=== PATIENT | female | born 1970 | race Caucasian/White ===

== ENCOUNTER 2017-10-03 06:01 | Observation (INO) ==
--- NOTE | 2017-10-03 06:28 | Emergency Department Note ---
Disposition Clinical Impression: Bradycardia Syncope Qualifiers: Syncope type: unspecified Qualified Code(s): R55 - Syncope and collapse Hypotension Qualifiers: Hypotension type: hypotension due to hypovolemia Qualified Code(s): I95.89 - Other hypotension Disposition: Admitted As Inpatient Condition: Fair Syncope HPI - General Chief Complaint: ED Syncope Stated Complaint: "Syncopal Episode/Dizzy" Time Seen by Provider: 10/03/17 06:17 Source: patient, family Limitations: no limitations Nursing Notes Reviewed: Yes Vital Signs Reviewed: Yes - History of Present Illness HPI Narrative: 39-year-old female presents emergency department with concern for having a syncopal episode. Patient has had these in the past. She has had had an overnight stay at [facility]. Patient states she has an appointment with Dr. Peoples on the of this month. Patient states that her heart rate was in the 30s when she was admitted also. Patient denies any shortness of breath, chest pain, pressure, tightness. Patient states she was in her shower getting out, when she started feeling very lightheaded. She stated that she passed out , lost consciousness, denies hitting her head. Not having different per her . - Related Data Home Medications Medication Instructions Recorded Confirmed Gabapentin [Neurontin] 600 mg PO TID 10/03/17 10/03/17 Tizanidine HCl 4 mg PO QID PRN 10/03/17 10/03/17 Allergies Allergy/AdvReac Type Severity Reaction Status Date / Time No Known Allergies Allergy Verified 10/03/17 06:02 All systems ED: reviewed and negative except as stated. Review of Systems: As Per HPI Constitutional: Denies: fever Cardiovascular: Reports: syncope. Denies: chest pain Respiratory: Denies: cough, dyspnea Gastrointestinal: Denies: abdominal pain, nausea, vomiting Genitourinary: Denies: urgency, dysuria, frequency Musculoskeletal: Denies: back pain Integumentary: Denies: rash Neurological: Denies: headache, weakness, numbness, paresthesias Psychiatric: Denies: anxiety Endocrine: Denies: fatigue Past Medical History - Past Medical History Medical history: Reports: syncope Psychiatric history: Reports: bipolar - Social History Smoking Status: Never smoker Alcohol use: Reports: none Drug use: Reports: none Physical Exam - General Limitations: no limitations General appearance: alert - Head Head exam: normocephalic - Eye Eye exam: Present: EOMI - ENT ENT exam: normal oropharynx, mucous membranes moist - Neck Neck exam: Present: trachea midline - Chest Chest inspection: Present: symmetric chest wall rise - Respiratory Respiratory exam: Present: normal lung sounds bilaterally. Absent: respiratory distress, accessory muscle use - Cardiovascular Cardiovascular exam: Present: regular rate, normal rhythm, normal heart sounds - Abdominal Exam Abdominal exam: Present: soft, Non-Tender. Absent: distention, guarding, rebound, rigidity - Extremities Exam Extremities exam: Present: normal capillary refill - Back Exam Back exam: Present: full ROM - Neurological Exam Neurological exam: Present: alert, oriented X3 - Psychiatric Psychiatric exam: Present: normal affect, normal mood - Skin Skin exam: Present: warm, dry, intact, normal color Course Vital Signs Temperature 97.5 F L 10/03/17 06:02 Pulse Rate 68 10/03/17 06:02 Respiratory Rate 17 10/03/17 06:02 Blood Pressure 72/48 10/03/17 06:02 O2 Sat by Pulse Oximetry 98 10/03/17 06:02 Temperature 98.9 F 10/03/17 19:21 Pulse Rate 67 10/03/17 19:21 Respiratory Rate 17 10/03/17 19:21 Blood Pressure 127/75 10/03/17 19:21 O2 Sat by Pulse Oximetry 97 10/03/17 19:21 Oxygen Delivery Oxygen Delivery Room Air Syncope - MDM Narrative Medical decision making narrative: 47-year-old female presents emergency department with concern for having a syncopal episode today. EKG revealed sinus bradycardia with no acute ST changes. No evidence of Brugada's syndrome, Dudley-Parkinson White syndrome, hypertrophic cardiomyopathy, QT prolongation. Patient will be pursued basic labs. She will also be receiving a chest x-ray. Patient currently hemodynamically stable and not in any acute distress at this time. Patient's workup was not complete as patient has outstanding labs and imaging at time of transfer of care to the day team. I did speak to her inspecting supervisor, Dr. Peoples, who has an appointment with her on October 17. I explained to him the possibility of a scenario with this patient will be sent home and wanted to know if she could have closer follow-up with him instead of on the . Per our conversation, it seemed as if this might not be possible. Transfer of care provided to the day team with disposition pending. - Lab Data Result diagrams: 10/03/17 06:28 10/03/17 06:28 Lab Results 10/03/17 10/03/17 10/03/17 Range/Units 06:25 06:28 06:28 WBC 13.9 H (4.3-11.1) K/mcL RBC 5.83 H (3.82-4.97) M/mcL Hgb 17.0 H (11.5-15.4) g/dL Hct 48.5 H (35.3-44.9) % MCV 83.2 (83.0-100.0) fL MCH 29.2 (28.0-33.3) pg MCHC 35.1 (31.6-35.5) g/dL RDW 12.1 (11.5-14.5) % Plt Count 348 (140-400) K/mcL MPV 10.0 (9.4-12.4) fL Sodium 140 (136-145) mEq/L Potassium 3.9 (3.5-5.1) mEq/L Chloride 103 (98-107) mEq/L Carbon Dioxide 25 (23-29) mEq/L BUN 10 (6-20) mg/dL Creatinine 0.77 (0.60-1.20) mg/dL Est GFR ( Amer) > 60 (> 60) Est GFR (Non-Af Amer) > 60 (> 60) BUN/Creatinine Ratio 13 (6-26) Glucose 109 H (70-105) mg/dL POC Glucose 135 H (70-99) mg/dL Calculated Osmolality 290 (280-300) Calcium 10.4 H (8.6-10.3) mg/dL Troponin I < 0.03 (< 0.04) ng/mL TSH 1.752 (0.340-5.600) mcIU/mL Attestation Statement - Attestation Attestation: Dr Jiang note: Pt seen in conjunction w/ resident Dr King; please see his charting for complete documentation; I spent face to face time w/ pt and agree w/ pt's treatment and disposition; labs and results pending at time of our departure from shift; dispo will be per the dayshift attending physician; pt stable at our time of depature from shift;
[2017-10-03] MEDS ORDERED: 0.9 % Sodium Chloride 1,000 ML IV SCH (06:30)
[2017-10-03 06:40] LABS: Hematocrit 48.5 % (35.3-44.9); Mean Corpuscular HGB Conc 35.1 g/dL (31.6-35.5); Mean Corpuscular Hemoglobin 29.2 pg (28.0-33.3); Mean Corpuscular Volume 83.2 fL (83.0-100.0); Platelet Count 348 K/mcL (140-400); Red Blood Count 5.83 M/mcL (3.82-4.97); Red Cell Distribution Width 12.1 % (11.5-14.5)
[2017-10-03] MEDS ORDERED: Ondansetron 4 MG/2 ML VIAL IVP ONE (06:54)
[2017-10-03 07:02] LABS: BUN/Creatinine Ratio 13 (6-26); Blood Urea Nitrogen 10 mg/dL (6-20); Calcium 10.4 mg/dL (8.6-10.3); Carbon Dioxide 25 mEq/L (23-29); Chloride 103 mEq/L (98-107); Glucose 109 mg/dL (70-105); Osmolality,Calculated 290 (280-300); Potassium 3.9 mEq/L (3.5-5.1); Sodium 140 mEq/L (136-145); eGFR For Non-African Americans > 60 (> 60)
[2017-10-03 07:03] LABS: Troponin I < 0.03 ng/mL (< 0.04)
[2017-10-03 07:37] LABS: Thyroid Stimulating Hormone 1.752 mcIU/mL (0.340-5.600)
--- NOTE | 2017-10-03 07:53 | Emergency Department Note ---
Disposition Clinical Impression: Syncope Qualifiers: Syncope type: unspecified Qualified Code(s): R55 - Syncope and collapse Disposition: Admitted As Inpatient Referrals: Taylor Jacob CNP [Primary Care Provider] - Forms: ED Satisfaction Letter Time of Disposition: 07:53 General Adult HPI - General Chief complaint: ED Syncope Stated complaint: "Syncopal Episode/Dizzy" Time Seen by Provider: 10/03/17 06:17 Source: patient, family Limitations: no limitations - History of Present Illness Pain Scale: 0 - Related Data Allergies Allergy/AdvReac Type Severity Reaction Status Date / Time No Known Allergies Allergy Verified 10/03/17 06:02 Constitutional: Denies: fever Cardiovascular: Reports: syncope. Denies: chest pain Respiratory: Denies: cough, dyspnea Gastrointestinal: Denies: abdominal pain, nausea, vomiting Genitourinary: Denies: urgency, dysuria, frequency Musculoskeletal: Denies: back pain Integumentary: Denies: rash Neurological: Denies: headache, weakness, numbness, paresthesias Psychiatric: Denies: anxiety Endocrine: Denies: fatigue Past Medical History - Past Medical History Medical history: Reports: syncope Psychiatric history: Reports: bipolar - Social History Smoking Status: Never smoker Alcohol use: Reports: none Drug use: Reports: none Physical Exam - General Limitations: no limitations General appearance: alert Course Vital Signs Temperature 97.5 F L 10/03/17 06:02 Pulse Rate 68 10/03/17 06:02 Respiratory Rate 17 10/03/17 06:02 Blood Pressure 72/48 10/03/17 06:02 O2 Sat by Pulse Oximetry 98 10/03/17 06:02 Temperature 97.5 F L 10/03/17 06:02 Pulse Rate 45 10/03/17 06:52 Respiratory Rate 16 10/03/17 06:52 Blood Pressure 95/59 10/03/17 06:52 O2 Sat by Pulse Oximetry 98 10/03/17 06:52 Oxygen Delivery Oxygen Delivery Room Air Medical Decision Making - Lab Data Result diagrams: 10/03/17 06:28 10/03/17 06:28 Lab Results 10/03/17 10/03/17 Range/Units 06:28 06:28 WBC 13.9 H (4.3-11.1) K/mcL RBC 5.83 H (3.82-4.97) M/mcL Hgb 17.0 H (11.5-15.4) g/dL Hct 48.5 H (35.3-44.9) % MCV 83.2 (83.0-100.0) fL MCH 29.2 (28.0-33.3) pg MCHC 35.1 (31.6-35.5) g/dL RDW 12.1 (11.5-14.5) % Plt Count 348 (140-400) K/mcL MPV 10.0 (9.4-12.4) fL Sodium 140 (136-145) mEq/L Potassium 3.9 (3.5-5.1) mEq/L Chloride 103 (98-107) mEq/L Carbon Dioxide 25 (23-29) mEq/L BUN 10 (6-20) mg/dL Creatinine 0.77 (0.60-1.20) mg/dL Est GFR ( Amer) > 60 (> 60) Est GFR (Non-Af Amer) > 60 (> 60) BUN/Creatinine Ratio 13 (6-26) Glucose 109 H (70-105) mg/dL Calculated Osmolality 290 (280-300) Calcium 10.4 H (8.6-10.3) mg/dL Troponin I < 0.03 (< 0.04) ng/mL TSH 1.752 (0.340-5.600) mcIU/mL Attestation Statement - Attestation Attestation: I examined this patient and my medical decision-making was reviewed with the Resident Physician. I agree with the documented findings, disposition and treatment plan as described except to the extent set forth below. 47 year old female prsentse to the ED ith complaints of syncope and was most recently evaluted and treated at [facility] for symptomatic bradycardia. She states that she is starting to feel the same way again. She states that last time i DEcemeber when this happened she was gien fluids and it improved. Patient at rest is 48 bpm. WE will admit for symptomatic bradycardia.
--- NOTE | 2017-10-03 08:07 | Emergency Department Note ---
Disposition Clinical Impression: Bradycardia Syncope Qualifiers: Syncope type: unspecified Qualified Code(s): R55 - Syncope and collapse Hypotension Qualifiers: Hypotension type: unspecified hypotension type Qualified Code(s): I95.9 - Hypotension, unspecified Disposition: Admitted As Inpatient Condition: Fair Time of Disposition: 08:28 Syncope HPI - General Chief Complaint: ED Syncope Stated Complaint: "Syncopal Episode/Dizzy" Time Seen by Provider: 10/03/17 06:17 Source: patient, family Limitations: no limitations Nursing Notes Reviewed: Yes Vital Signs Reviewed: Yes - History of Present Illness HPI Narrative: Patient was signed out to me by the nighttime physician is Dr. Ortiz and Dr. Jiang pending reevaluation and final disposition. Please see their note for further details. Pt Subjective Complaint: loss of consciousness, collapsed - Related Data Home Medications Medication Instructions Recorded Confirmed Gabapentin [Neurontin] 600 mg PO TID 10/03/17 10/03/17 Tizanidine HCl 4 mg PO QID PRN 10/03/17 10/03/17 Allergies Allergy/AdvReac Type Severity Reaction Status Date / Time No Known Allergies Allergy Verified 10/03/17 06:02 All systems ED: reviewed and negative except as stated. Constitutional: Denies: fever Cardiovascular: Reports: syncope. Denies: chest pain Respiratory: Denies: cough, dyspnea Gastrointestinal: Denies: abdominal pain, nausea, vomiting Genitourinary: Denies: urgency, dysuria, frequency Musculoskeletal: Denies: back pain Integumentary: Denies: rash Neurological: Denies: headache, weakness, numbness, paresthesias Psychiatric: Denies: anxiety Endocrine: Denies: fatigue Past Medical History - Past Medical History Attestation: Yes The following information was validated with the patient. Source: patient Medical history: Reports: syncope Psychiatric history: Reports: bipolar - Social History Smoking Status: Never smoker Alcohol use: Reports: none Drug use: Reports: none Physical Exam - General Limitations: no limitations General appearance: alert Course Course Narrative: Patient was signed out to me by the nighttime physician is Dr. Ortiz and Dr. Jiang pending reevaluation and final disposition. Please see their note for further details. Fatuma is a 47-year-old female otherwise healthy presenting with a syncopal episode. Reports waken up at 4 o'clock getting ready for work when she did feel little lightheaded nauseated and in the shower she passed out. She admits to take in a warm shower but not a hot shower. She did collapse and when she regained consciousness she was pounding on the wall to have Primo help her out. She does not recall hitting her head. No history of seizures. She denies any weakness or numbness at this time. Denies any prodromal symptoms such as chest pain or shortness of breath. No headache or neck pain at this time. She reports a similar history month ago where she did have similar symptoms for 5 days and the fellow multiple times. She denies common for any evaluation. She also reports recent admission back in January were they gave her fluids and discharge her home after observation. She denies any additional testing. She reportedly has an appointment with Dr. Peoples the material checker October 17. She denies any shortness of breath or chest pain. No history of cancer, blood clots or leg swelling. Does not take any hormone replacements. Wells score is low, PERC positive. EKG performed shows sinus bradycardia 53 beats per minute WI interval 175, no ST elevation or depression, no Brugada pattern, no delta waves or LVH. No acute ischemic changes. Her initial vital signs she was hypotensive Sunday to systolic. After IV fluid hydration her systolic blood pressure has increased to 100. On examination she appears in no acute distress. No nystagmus seen on examination. No cervical midline tenderness. Neurologic exam is normal without any focal deficits. Heart is bradycardic but regular. No murmurs are auscultated at rest or with Valsalva. Review for lab shows elevated WBC possibly stress response related. Her hemoglobin level is significantly elevated 17. She denies any G.I. bleed symptoms. Troponin less than 0.03. Given the frequency of her symptoms she would benefit admission and observation for further evaluation. - Reevaluation(s) Reevaluation #1: Chest x-ray does not reveal any acute abnormalities. Findings concerning for possible atelectasis but no pneumonia. Orthostatic performed that she is hypotensive again. She will receive a 2nd liter normal saline. Patient will be admitted for syncopal episode, bradycardia and hypotension Time: 08:18 - Consultations Consultation #1: Unable to reach the admitting hospitalist, was able to speak with Dr. Bliss for admission of syncope, bradycardia, and orthostatic hypotension responsive to fluid. Will touch base with cardiology to have him on board. No further request or orders. Patient remains hemodynamically stable. Time: 10:04 Consultation #2: Spoke with on-call material checker Dr. Belle and agree with admission and will evaluate the patient. No further orders at this time. Time: 10:20 Vital Signs Temperature 97.5 F L 10/03/17 06:02 Pulse Rate 68 10/03/17 06:02 Respiratory Rate 17 10/03/17 06:02 Blood Pressure 72/48 10/03/17 06:02 O2 Sat by Pulse Oximetry 98 10/03/17 06:02 Temperature 97.5 F L 10/03/17 06:02 Pulse Rate 49 10/03/17 10:11 Respiratory Rate 24 10/03/17 10:11 Blood Pressure 113/61 10/03/17 10:11 O2 Sat by Pulse Oximetry 93 10/03/17 10:11 Oxygen Delivery Oxygen Delivery Room Air Syncope - MDM Narrative Medical decision making narrative: Patient was discussed with my attending physician who agrees with ED management and final disposition. They independently evaluated the patient. Please refer to their attestation to this encounter for additional information. This note was generated by [employer] voice recognition software and as a result grammatical or spelling errors may occur using this program. - Medical Records Medical records reviewed: Yes I reviewed the patient's medical records. - Lab Data Lab results reviewed: Yes I reviewed the patient's lab results. Result diagrams: 10/03/17 06:28 10/03/17 06:28 Lab Results 10/03/17 10/03/17 Range/Units 06:28 06:28 WBC 13.9 H (4.3-11.1) K/mcL RBC 5.83 H (3.82-4.97) M/mcL Hgb 17.0 H (11.5-15.4) g/dL Hct 48.5 H (35.3-44.9) % MCV 83.2 (83.0-100.0) fL MCH 29.2 (28.0-33.3) pg MCHC 35.1 (31.6-35.5) g/dL RDW 12.1 (11.5-14.5) % Plt Count 348 (140-400) K/mcL MPV 10.0 (9.4-12.4) fL Sodium 140 (136-145) mEq/L Potassium 3.9 (3.5-5.1) mEq/L Chloride 103 (98-107) mEq/L Carbon Dioxide 25 (23-29) mEq/L BUN 10 (6-20) mg/dL Creatinine 0.77 (0.60-1.20) mg/dL Est GFR ( Amer) > 60 (> 60) Est GFR (Non-Af Amer) > 60 (> 60) BUN/Creatinine Ratio 13 (6-26) Glucose 109 H (70-105) mg/dL Calculated Osmolality 290 (280-300) Calcium 10.4 H (8.6-10.3) mg/dL Troponin I < 0.03 (< 0.04) ng/mL TSH 1.752 (0.340-5.600) mcIU/mL - Radiology Data Radiology results reviewed: Yes I reviewed the patient's radiology results. Chest X-Ray 10/03/17 07:16 IMPRESSION: Low lung volumes and mild bibasilar opacities which are favored to represent atelectasis. D/ / Mike Wise MD / Mike Wise MD Interpreting Provider: Mike Wise MD - EKG Data EKG attestation: Yes I reviewed and interpreted this EKG. EKG results narrative: EKG performed at 0616 sinus bradycardia 53 bpm, normal axis, WI interval 175, no ST elevation, no Brugada pattern, delta wave, or LVH. QT QTc 431/414. No acute ischemic changes.
[2017-10-03] MEDS ORDERED: 0.9 % Sodium Chloride 1,000 ML IVC ONE (08:18)
[2017-10-03] MEDS ORDERED: *HR* HYDROcodone/Acet 5/325 mg TABLET PO PRN (12:06)
[2017-10-03] MEDS ORDERED: Acetaminophen 325 MG TABLET PO PRN (12:06)
[2017-10-03] MEDS ORDERED: Naloxone 0.4 MG/ML INJ IVP PRN (12:06)
[2017-10-03] MEDS ORDERED: Ondansetron 4 MG/2 ML VIAL IVP PRN (12:06)
[2017-10-03] MEDS ORDERED: *HR* Promethazine 25 MG/ML VIAL IVP PRN (12:06)
[2017-10-03] MEDS ORDERED: tiZANidine 4 MG TABLET PO PRN (12:08)
[2017-10-03] MEDS ORDERED: 0.9 % Sodium Chloride 1,000 ML IVC SCH (12:15)
--- NOTE | 2017-10-03 14:02 | Cardiology Consult Note ---
<Emily Negrete - Last Filed: 10/03/17 14:45> Date of Encounter: 10/03/17 Time of Encounter: 13:46 Assessment and Plan (1) Syncope Current Visit: Yes Status: Acute Patient presenting with syncope, bradycardic and hypotensive on arrival - Most likely etiology due to multi-factorial mechanism, orthostatic hypotension given history and mechanism, along with medication side effects - EKG negative for acute ischemic changes do not suspect cardiac etiology at this time, will order echocardiogram for reassurance - bmp, TSH, Mg, troponin within normal limits - CXR shows linear opacitis, suggestive of atelectasis - positive orthostatics - vitals have remained stable since admission, HR in the 70s on examination Plan: - Holter monitor ordered with follow up outpatient established with Dr. Carlos Carias 10/16/17 - recommend stopping tizanidine and gabapentin with side effect profile, will defer to hospitalist for medication management - recommended to patient to add salt to diet, compression stockings, maintain hydration, avoidance of exacerbating factors, getting up slowly from a sitting position - Echocardiogram pending Qualifiers: Syncope type: unspecified Qualified Code(s): R55 - Syncope and collapse Discussion w patient/family: The assessment and plan as outlined above was discussed with the patient and/or family members who expressed understanding and agreement. All questions were answered. Thank you for involving us in the care of your patient. Please call with any questions. History of Present Illness Consult date: 10/03/17 Requesting physician: Emeli Espino Consult reason: syncope/ bradycardia Chief complaint: syncope History of present illness: Ms. De Leon is a 47 year old female presenting for cardiology consult for syncope /bradycardia admitted for syncope/bradycardia. Patient has past medical history of bipolar disorder, not currently taking medication. Patient state that yesterdays she had symptoms of generalized dizziness, where she felt as though the room was spinning and she was spinning, denies position change to dizziness. States that this was going on intermittently throughout the day which eventually subsided by the evening. She states this morning she woke up at baseline and went into the hot shower, where she began to have abrupt onset, lightheaded and dizziness with syncope. She denies hitting her head, she is unaware how long she was down. She denies biting her tongue, loss of bowel or bladder. Over the past six months she has had similar lightheaded and dizzy episodes going from sitting to standing position with one syncopal episode about 3 months ago, was not evaluated at that time. She was seen in the ER and admitted for observation 6 months ago for syncopal episode, states she was given fluids and discharged without determination of etiology. She states 3 months prior to this, she was started on a new bipolar medication, rexulti, and this was thought to be a cause and was stopped. She states that her symptoms improved slightly after this medication change. She denies any recent medication changes, chest pain, sob, palpitations, weakness, numbness or tinging. She denies history of arrhythmia or abnormal heart rhythm, she has not had cardiac testing in the past or history of [place]. She states that she has had a seizure in the past, around 2004, was told this was due to low potassium, has not had recurrence of seizures and has never been seen by neurology. Patient does take Tizanidine 4 mg four times per day and gabapentin 600 three times per day. While in the ER, patient had EKG which showed sinus bradycardia, no signs of acute ischemic changes. Patient was given 2L NS and heart rate was noted WNL. Currently, patient is resting comfortably in her bed on examination, denies current complaints or symptoms. Denies chest pain, sob, palpitations, lightheaded or dizziness. Past Med Surg Social Fam HX - Past Medical History Medical history: syncope Psychiatric history: bipolar - Past Surgical History Additional surgical history: Ortho ankel, wrist and finger sx - Social History Smoking Status: Never smoker Alcohol use: none Drug use: none - Family History Mother History Unknown: Yes Father Living Status: Still Living Hx Family Respiratory Disorders: Yes Hx Family Cancer: Yes Medications and Allergies Gabapentin [Neurontin] 600 mg PO TID 10/03/17 [History] Tizanidine HCl 4 mg PO QID PRN 10/03/17 [History] 3 Allergy/AdvReac Type Severity Reaction Status Date / Time No Known Allergies Allergy Verified 10/03/17 06:02 All Systems Review: The remainder of the systems were reviewed and are negative - Constitutional Constitutional: no chills, no fatigue, no fever(s), no headache(s), no weakness - Cardiovascular Cardiovascular: lightheadedness, slow heart rate, syncope, no chest pain at rest , no chest pain with exertion, no diaphoresis, no dyspnea at rest, no dyspnea on exertion, no irregular heart rhythm, no leg edema, no orthopnea, no palpitations - Respiratory Respiratory: no cough, no dyspnea - Gastrointestinal Gastrointestinal: no abdominal pain, no diarrhea, no nausea - Integumentary Integumentary: no erythema, no rash - Neurological Neurological: dizziness, syncope, no focal weakness, no numbness, no tingling Physical Examination Vital Signs, Last 4 Hours Temp Pulse Resp BP Pulse Ox 10/03/17 10:51 98.7 F 89 15 99/52 97 General: Conversant, No Apparent Distress HEENT: Atraumatic, Normocephaly, Mucus Membranes Moist Neck: No JVD, Normal carotid pulses Cardiac: Reg Rate and Rhythm, Normal S1 and S2, No Murmur Lungs: Normal Breath Sounds, No Wheeze, Rales, Rhonchi Neuro: Alert and responsive, No focal deficits noted Abdomen: Soft, Non-Tender Skin: No rashes noted on visualized skin Musculoskeletal: No Chest Wall Tenderness Extremities: No Clubbing, No Cyanosis, No Edema, Normal Pulses Results 10/03/17 06:28 10/03/17 06:28 - Imaging and Cardiology Chest Xray: report reviewed Echo: pending - EKG Interpretation EKG results cardiology: personally reviewed (EKG performed 10/03/17 showed sinus bradycardia with rate of 53 bpm, nonspecific ST changes, no acute ischemic changes, NE, QT, QTC, intervals normal) Consult Discharge Plan - Plan Referrals: Taylor Jacob CNP [Primary Care Provider] - <Senia Belle - Last Filed: 10/03/17 15:49> Date of Encounter: 10/03/17 - Attending Attestation I examined this patient and my medical decision-making was reviewed with the Resident Physician. I agree with the documented findings, disposition and treatment plan as described except to the extent set forth below. Ms. De Leon presents with reported syncope. Reports having other episodes of syncope in the past along with complaints of dizziness, lightheadedness. Denies chest pain, palpitations. History of bipolar disorder on gabapentin and tizanidine. At the bedside, the patient is alert and oriented x3, flat affect, NAD VS reviewed - afebrile on RA, SBP initially 72 mmHg, HR 40-80 Exam demonstrates unremarkable findings. Labs reviewed - initial troponin is negative CXR - unremarkable ECG on admit demonstrates SB, normal intervals, nonspecific ST findings diffusely Telemetry demonstrates average HR 50's, no significant pauses or dysrhythmia Impression/Plan: 1. Syncope - patient hypotensive on arrival with positive orthostatic VS. Patient is a poor historian. Suspect poor hydration (patient did not answer when I asked about hydration or oral intake). BP improved with IVF. By history taking, other episodes appear to be related to orthostasis. In part, symptoms may be medication mediated (gabapentin, tizanidine). Do not suspect cardiogenic mediated syncope. Sinus bradycardia on ECG with normal intervals and no other concerning findings. Awaiting Echo for further recommendations. Trend troponin. Patient has EP consultation as outpatient on 10/16. Assessment and Plan Discussion w patient/family: The assessment and plan as outlined above was discussed with the patient and/or family members who expressed understanding and agreement. All questions were answered. Thank you for involving us in the care of your patient. Please call with any questions. History of Present Illness History of present illness: Ms. De Leon is a 47 year old female All Systems Review: The remainder of the systems were reviewed and are negative Results 10/03/17 06:28 10/03/17 06:28
[2017-10-03] MEDS: Gabapentin 300 MG CAPSULE PO SCH ×2 (14:08→20:15)
[2017-10-03 14:16] LABS: Bilirubin,Urine Negative (Negative); Blood,Urine Negative (Negative); Clarity,Urine Clear (Clear); Color,Urine Yellow (Yellow); Glucose,Urine (UA) Normal (Normal); Ketones,Urine Negative (Negative); Leukocyte Esterase,Urine Negative (Negative); Nitrite,Urine Negative (Negative); Protein,Urine Negative (Neg-Trace); Specific Gravity,Urine 1.008 (1.010-1.025); Urobilinogen,Urine Normal (Normal)
--- NOTE | 2017-10-03 17:16 | Electrocardiograph Report ---
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
--- NOTE | 2017-10-03 17:55 | Internal Med History&Physical ---
Date of Encounter: 10/03/17 Time of Encounter: 14:00 Internal Medicine - H&P: HPI Chief complaint: Syncope Admitted From: Emergency Dept Plans for Post Hospital Care: Home History of present illness: Ms. De Leon is a 47 year old female with a known past medical history of bipolar - not on any medication currently presented to ER syncopal episode. Pt has been feeling dizzy since y/d. This morning when she went into the hot shower, where she began to have lightheaded and dizziness with syncope. Pt did mention she was hospitalized in January 2017 for syncope, since then so far she had 2 episodes of similar syncope. In the ER she was found to have sinus bradycardia with HR in high 40's. She denied any CP/ SOB. Denied any recent travel history. She denied GI . symptoms. In the ER her BP was in low 90's and ortho stats positive. Past Med Surg Social Fam HX - Past Medical History Medical history: syncope Psychiatric history: bipolar - Past Surgical History Additional surgical history: Ortho ankel, wrist and finger sx - Social History Smoking Status: Never smoker Alcohol use: none Drug use: none - Family History Mother History Unknown: Yes Father Living Status: Still Living Hx Family Respiratory Disorders: Yes Hx Family Cancer: Yes Internal Medicine - H&P: Meds Gabapentin [Neurontin] 600 mg PO TID 10/03/17 [History] Tizanidine HCl 4 mg PO QID PRN 10/03/17 [History] 3 Allergy/AdvReac Type Severity Reaction Status Date / Time No Known Allergies Allergy Verified 10/03/17 06:02 All Systems PM: A 10-system review of systems was performed and is negative for pertinent findings except as documented above in the HPI. Review of systems: All the systems are reviewed everything is benign except the systems and symptoms I mentioned in the history of present illness - Constitutional Vitals: Temp Pulse Resp BP Pulse Ox 98.5 F 49 14 115/69 97 10/03/17 15:29 10/03/17 15:29 10/03/17 15:29 10/03/17 15:29 10/03/17 15:29 General appearance: Present: cooperative, A&O X 3, no acute distress, answers questions appropriately - Head Head exam: Present: atraumatic, normocephalic - Neck Neck exam general surgery: Present: supple - Respiratory Respiratory exam: Present: decreased breath sounds. Absent: rales, respiratory distress, rhonchi, wheezes - Cardiovascular Cardiovascular exam: Present: RRR, +S1, +S2. Absent: tachycardia - GI/Abdominal GI/Abdominal exam: Present: normal bowel sounds, soft. Absent: rebound, rigid, tenderness - Extremities Exam Extremities exam: Absent: calf tenderness, pedal edema, tenderness - Back Exam Back exam: Absent: CVA tenderness (L), CVA tenderness (R) - Neurological Exam Neurological exam: Present: alert, oriented X3 - Psychiatric Psychiatric exam: Present: normal affect, normal mood - Skin Skin exam: Absent: rash Internal Med - H&P Results - Labs CBC & Chem 7: 10/03/17 06:28 10/03/17 06:28 Labs: Cardiac Enzymes 10/03/17 Range/Units 16:31 Troponin I < 0.03 (< 0.04) ng/mL Urine 10/03/17 Range/Units 14:00 Urine Color Yellow (Yellow) Urine Clarity Clear (Clear) Urine pH 6.0 (5.0-8.0) pH Units Ur Specific [place] 1.008 L (1.010-1.025) Urine Protein Negative (Neg-Trace) mg/dL Urine Glucose (UA) Normal (Normal) mg/dL - Assessment and plan (1) Syncope Current Visit: Yes Status: Acute Assessment and plan: Will place the pt into Tele for observation Pt's Syncope seems to be more like vasovagal reaction / ortho static EKG showed sinus bradycardia will place the pt on hospital monitor check serial troponin so far negative trop will get 2 D echo and Carotid Doppler Will check FLP in AM Cont checking ortho stat vitals Cont IV fluids Will hold on her home med Tizanidine Qualifiers: Syncope type: unspecified Qualified Code(s): R55 - Syncope and collapse (2) Bradycardia Current Visit: Yes Status: Acute Assessment and plan: Sinus sunshine cardia Card consulted 2D co - P Possible holter monitor upon d/c home (3) Hypotension Current Visit: Yes Status: Acute Assessment and plan: Due to dehydration started on IV hydration improving Qualifiers: Hypotension type: hypotension due to hypovolemia Qualified Code(s): I95.89 - Other hypotension; E86.1 - Hypovolemia - Time Spent With Patient Total time spent is greater than 50% in coordination of care (as documented) at patient's floor/unit and/or counseling patient:
[2017-10-03 19:21] VITALS: BP 127/75
--- NOTE | 2017-10-04 10:18 | Event Note ---
Date of Encounter: 10/04/17 Time of Encounter: 23:00 I was notified by the nurse that patient was not compliant with treatment here in the hospital. She had taken off her security monitor, and was refusing lab draws. The nurse requested I speak with the patient about this. Upon entering the room patient did not acknowledge my presence, I turn on the light and asked her how she was feeling. She stated that she was upset he goes we are not giving her medication to help her sleep so she took off all of her monitors and was refusing lab draws because these things make her uncomfortable. I explained to her that we are treating her for low heart rate, syncope and were concerned that sedating medicine could worsen her symptoms. Patient stated that she understood however she did not agree with our treatment. I explained that it would be dangerous to give her medicine that would sedate her in her current condition. I was later notified a few hours later that the patient left AMA without the nurse knowing and she left the hospital.
== END 2017-10-04 01:17 | disposition left against medical advice (07) ==
LOC: 3BNU 06:01 → EMEROO 06:01 → 3BNU 10:44
PROVIDERS: ADMIT Family Medicine; ATTEND Family Medicine

== ENCOUNTER 2018-07-26 10:57 | Inpatient (IN) ==
[2018-07-26 13:01] LABS: ABG Base Excess 0 mEq/L (-2 to 3); ABG HCO3 23 mEq/L (21-27); ABG Oxygen Saturation 99 % (95-98); ABG PCO2 33 mmHg (35-45); ABG PH 7.45 pH Units (7.32-7.45); ABG PO2 113 mmHg (85-104); ABG TCO2 24 mEq/L (20-26); Blood Gas Modality ASSIST CONTROL; Blood Gas PEEP 5 cm H2O; Blood Gas Respiration Rate 12; Blood Gas VT 450 cc
[2018-07-26] MEDS ORDERED: Artificial Tears SOLN 15 ML BOTTLE BOTH EYES PRN (13:27)
[2018-07-26] MEDS ORDERED: *HR* Heparin 5,000 UNIT/ML VIAL ONE (14:07)
[2018-07-26] MEDS: 0.9 % Sodium Chloride 1,000 ML IVC SCH (14:09)
[2018-07-26] MEDS: FentaNYL (PF) 1,000 MCG in 0.9 % Sodium Chloride 80 ML IVC SCH (14:09)
[2018-07-26] MEDS: Chlorhexidine Rinse 15 ML MOUTHWASH MM SCH ×2 (14:10→19:58)
[2018-07-26] MEDS: Pantoprazole 40 MG VIAL IVP SCH (14:10)
[2018-07-26 14:41] LABS: Basophils % 0.3 %; Eosinophils # 0.1 K/mcL (0.0-0.6); Eosinophils % 0.6 %; Hematocrit 46.6 % (35.3-44.9); Hemoglobin 15.5 g/dL (11.5-15.4); Immature Granulocytes % 0.4 % (0-4); Lymphocytes # 2.6 K/mcL (0.6-4.6); Lymphocytes % 20.9 %; Mean Corpuscular HGB Conc 33.3 g/dL (31.6-35.5); Mean Corpuscular Hemoglobin 29.8 pg (28.0-33.3); Mean Corpuscular Volume 89.4 fL (83.0-100.0); Mean Platelet Volume 10.9 fL (9.4-12.4); Monocytes % 8.3 %; Platelet Count 172 K/mcL (140-400); Red Blood Count 5.21 M/mcL (3.82-4.97); Red Cell Distribution Width 12.7 % (11.5-14.5); Segmented Neutrophils % 69.5 %
[2018-07-26] MEDS: *HR* Heparin 5,000 UNIT/ML VIAL SQ SCH ×2 (14:55→19:58)
[2018-07-26] MEDS: Artificial Tears SOLN 15 ML BOTTLE BOTH EYES SCH ×3 (14:56→23:08)
[2018-07-26 15:01] LABS: Monocytes # 1.1 K/mcL (0.0-1.3); Neutrophils # 8.8 K/mcL (1.6-8.9)
[2018-07-26 15:02] LABS: Platelet Estimate Normal (Normal)
--- NOTE | 2018-07-26 15:51 | Pulmonology History & Physical ---
Date of Encounter: 07/26/18 Time of Encounter: 13:40 Assessment and Plan (1) Acute respiratory failure Current visit: Yes Status: Acute Patient was transferred from outside hospital on the ventilator. Is not clear exactly her condition when she came to the emergency room at outside hospital and she was intubated for most likely mental status changes due to her intentional overdose. At this time patient is not hemodynamically stable for spontaneous breathing trial. I have reviewed her ABG from outside hospital which is appropriate and I discussed with respiratory therapist to repeat ABG and will adjust ventilator setting appropriately. I am hoping when she is more awake then she can be extubated. Qualifiers: Respiratory failure complication: unspecified whether with hypoxia or hypercapnia Qualified Code(s): J96.00 - Acute respiratory failure, unspecified whether with hypoxia or hypercapnia (2) Overdose Current visit: Yes Status: Acute It is not clear exactly how much and what medication she has taken and poison control has been contacted. It appears that she has prolongation of QT interval and she has already has received atropine for bradycardia. She will need close monitoring and supportive care at this time. When she is extubated and images was suicidal attempt then she will need psych evaluation. I have discussed this with the sister at the bedside and answered all her questions. Her to vascular complications could be serious complication from taking psychiatric medications. I spent 50 min of Critical Care time with this patient. It involved decision making of high complexity to assess, manipulate, and support vital organ system failure and/or to prevent further life threatening deterioration of the patient's condition. The time involved in the performance of separately reportable procedures was not counted toward critical care time. Qualifiers: Encounter type: initial encounter Injury intent: undetermined intent Qualified Code(s): T50.904A - Poisoning by unspecified drugs, medicaments and biological substances, undetermined, initial encounter History of Present Illness Chief complaint: Overdose HPI: Ms. De Leon is a 48 year old female with significant psychiatric disorders who was transferred to [facility] ICU per request from the family from the [facility]. Patient is not able to give any history and when she arrived to [facility] ICU her sister was available and history remain limited. It is unknown whether this was intentional or accidental overdose. 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 Unknown exactly which she overdosed, however when she presented to emergency room at the outside facility she was intubated and was given atropine and also for bradycardia. I am not able to obtain any more history at this time. Past Med Surg Social Fam HX - Past Medical History Medical history: GERD, kidney stones, seizures, syncope Psychiatric history: anxiety, bipolar, depression - Past Surgical History Surgical History: , cholecystectomy Additional surgical history: Ortho ankel, wrist and finger sx - Social History Smoking Status: Never smoker Smokeless Tobacco Status: No Alcohol use: none Drug use: none - Family History Father Living Status: Still Living Hx Family Respiratory Disorders: Yes Hx Family Cancer: Yes Medications and Allergies Gabapentin [Neurontin] 600 mg PO TID 10/03/17 [History] Tizanidine HCl 4 mg PO TID 10/03/17 [History] Zolpidem [Ambien] 10 mg PO HS PRN 02/16/18 [History] Allergy/AdvReac Type Severity Reaction Status Date / Time No Known Allergies Allergy Verified 02/16/18 13:58 ROS unobtainable: due to mental status All Systems: The remainder of the systems were reviewed and are negative Physical Examination Vital Signs: Vital Signs, Last 4 Hours Temp Pulse Resp BP Pulse Ox 07/26/18 15:00 97.9 F 50 15 117/73 99 07/26/18 14:00 97.9 F 48 15 126/73 99 07/26/18 13:49 14 100 07/26/18 12:40 14 99 General appearance: no acute distress Eyes: nonicteric ENT: oropharynx dry Neck: supple, no lymphadenopathy Effort: normal Auscultation: bilateral: diminished breath sounds Percussion: bilateral: not dull Cardiovascular: regular rate and rhythm Gastrointestinal: normoactive bowel sounds, non-distended Extremities: no cyanosis, no edema unable to assess due to mental status Results - Laboratory Findings CBC and BMP: 07/27/18 04:33 07/27/18 04:33 ABG ABG pH 7.45 pH Units (7.32-7.45) 07/26/18 12:58 ABG pCO2 33 mmHg (35-45) L 07/26/18 12:58 ABG pO2 113 mmHg (85-104) H 07/26/18 12:58 ABG O2 Saturation 99 % (95-98) H 07/26/18 12:58 Abnormal lab findings: Abnormal lab results WBC 12.6 K/mcL (4.3-11.1) H 07/26/18 14:12 RBC 5.21 M/mcL (3.82-4.97) H 07/26/18 14:12 Hgb 15.5 g/dL (11.5-15.4) H 07/26/18 14:12 Hct 46.6 % (35.3-44.9) H 07/26/18 14:12 ABG pCO2 33 mmHg (35-45) L 07/26/18 12:58 ABG pO2 113 mmHg (85-104) H 07/26/18 12:58 ABG O2 Saturation 99 % (95-98) H 07/26/18 12:58 Lactic Acid 2.3 mmol/L (0.5-2.2) H 07/26/18 14:12
[2018-07-26 22:08] LABS: Alanine Aminotransferase 26 Units/L (7-52); Albumin 3.1 g/dL (3.5-5.7); Albumin/Globulin Ratio 1.5 (1.1-2.2); Alkaline Phosphatase 49 Units/L (34-104); Aspartate Amino Transferase 23 Units/L (13-39); BUN/Creatinine Ratio 17 (6-26); Bilirubin,Total 0.4 mg/dL (0.3-1.0); Blood Urea Nitrogen 11 mg/dL (6-20); Calcium 7.9 mg/dL (8.6-10.3); Carbon Dioxide 24 mEq/L (23-29); Chloride 109 mEq/L (98-107); Creatine Kinase 524 Units/L (30-223); Globulin 2.1 g/dL (2.4-3.5); Glucose 129 mg/dL (70-105); Magnesium 1.7 mg/dL (1.6-2.6); Osmolality,Calculated 295 (280-300); Phosphorous 3.7 mg/dL (2.7-4.5); Potassium 3.3 mEq/L (3.5-5.1); Sodium 142 mEq/L (136-145); Total Protein 5.2 g/dL (6.4-8.9); eGFR For Non-African Americans > 60 (> 60)
[2018-07-27] MEDS: 0.9 % Sodium Chloride 1,000 ML IVC SCH ×2 (02:36→12:45)
[2018-07-27] MEDS: FentaNYL (PF) 1,000 MCG in 0.9 % Sodium Chloride 80 ML IVC SCH ×3 (03:30→18:44)
[2018-07-27] MEDS: Artificial Tears SOLN 15 ML BOTTLE BOTH EYES SCH ×6 (03:45→23:21)
[2018-07-27 04:38] LABS: ABG Base Excess -1 mEq/L (-2 to 3); ABG HCO3 22 mEq/L (21-27); ABG Oxygen Saturation 93 % (95-98); ABG PCO2 30 mmHg (35-45); ABG PH 7.47 pH Units (7.32-7.45); ABG PO2 62 mmHg (85-104); ABG TCO2 23 mEq/L (20-26); Blood Gas Modality ASSIST CONTROL; Blood Gas PEEP 5 cm H2O; Blood Gas Respiration Rate 12; Blood Gas VT 450 cc
[2018-07-27 04:44] LABS: Hematocrit 36.1 % (35.3-44.9); Mean Corpuscular HGB Conc 34.1 g/dL (31.6-35.5); Mean Corpuscular Hemoglobin 29.9 pg (28.0-33.3); Mean Corpuscular Volume 87.6 fL (83.0-100.0); Mean Platelet Volume 9.7 fL (9.4-12.4); Platelet Count 181 K/mcL (140-400); Red Blood Count 4.12 M/mcL (3.82-4.97); Red Cell Distribution Width 12.8 % (11.5-14.5)
[2018-07-27 04:46] LABS: Hemoglobin 12.3 g/dL (11.5-15.4)
[2018-07-27 05:03] LABS: BUN/Creatinine Ratio 19 (6-26); Blood Urea Nitrogen 13 mg/dL (6-20); Calcium 7.8 mg/dL (8.6-10.3); Carbon Dioxide 25 mEq/L (23-29); Chloride 108 mEq/L (98-107); Creatine Kinase 413 Units/L (30-223); Glucose 135 mg/dL (70-105); Osmolality,Calculated 290 (280-300); Potassium 3.1 mEq/L (3.5-5.1); Sodium 139 mEq/L (136-145); eGFR For Non-African Americans > 60 (> 60)
[2018-07-27] MEDS: *HR* Heparin 5,000 UNIT/ML VIAL SQ SCH ×3 (05:44→21:16)
[2018-07-27 06:45] LABS: Albumin 3.5 g/dL (3.5-5.7); Albumin/Globulin Ratio 1.6 (1.1-2.2); Bilirubin,Direct 0.1 mg/dL (0.0-0.2); Bilirubin,Indirect 0.4 mg/dL (0.0-1.2); Bilirubin,Total 0.5 mg/dL (0.3-1.0); Globulin 2.2 g/dL (2.4-3.5); Total Protein 5.7 g/dL (6.4-8.9)
[2018-07-27] MEDS: Pantoprazole 40 MG VIAL IVP SCH (06:55)
[2018-07-27] MEDS: Chlorhexidine Rinse 15 ML MOUTHWASH MM SCH ×2 (06:55→21:16)
[2018-07-27 07:49] LABS: Magnesium 1.6 mg/dL (1.6-2.6)
[2018-07-27] MEDS: Piperacillin/Tazobactam 3.375 GM in 0.9 % Sodium Chloride Mini Bag 100 ML IVPB SCH ×3 (08:14→23:21)
--- NOTE | 2018-07-27 09:34 | Pulmonology Progress Note ---
<Fern Baires - Last Filed: 07/27/18 11:50> Date of Encounter: 07/27/18 Time of Encounter: 11:50 Assessment and Plan (1) Acute respiratory failure Current Visit: Yes Status: Acute Transferred from outside facility due to acute respiratory failure likely secondary to intoxication overdose CT scan at outside facility was negative for any acute abnormalities UDS was positive for opioids, benzo, TCA Continue to remain intubated Continue Zosyn for suspected aspiration pneumonia Qualifiers: Respiratory failure complication: unspecified whether with hypoxia or hypercapnia Qualified Code(s): J96.00 - Acute respiratory failure, unspecified whether with hypoxia or hypercapnia (2) Bradycardia Current Visit: No Status: Chronic History of bradycardia. Her sister previously had cardiac workup with Holter monitor as an outpatient Since admission heart rate has remained within normal limits We will continue to closely monitor and titrate sedatives accordingly (3) Overdose Current Visit: Yes Status: Acute Was found unresponsive at home and [facility] had a CT of the head which showed no acute abnormalities She had respiratory failure and was subsequently intubated outside facility Her UDS was positive for TCA, benzo and opiates At presentation her EKG showed prolonged QT interval likely secondary to TCA Continues to have prolonged QT interval avoid and medications to further prolong it Qualifiers: Encounter type: initial encounter Injury intent: undetermined intent Qualified Code(s): T50.904A - Poisoning by unspecified drugs, medicaments and biological substances, undetermined, initial encounter (4) Hypokalemia Current Visit: Yes Status: Acute Potassium was noted to be 3.1 repleted with IV potassium (5) Elevated troponin Current Visit: Yes Status: Acute Noted to have bradycardia at outside facility with junctional rhythm Per sister has chronic history of bradycardia At outside facility troponin was within normal limits repeat troponin this morning and elevated at 0.31, we will repeat every 6 hours EKG shows normal sinus rhythm with prolonged QT interval (6) DVT prophylaxis Current Visit: Yes Status: Acute Heparin subcutaneous Subjective Interval history: Seen at bedside this morning was intubated and sedated. He did respond to verbal and auditory stimuli by opening eyes but not following commands. Her heart rate has remained within normal limits her she reports history of bradycardia in the past and has had cardiac work up with a Holter monitor as an outpatient. Her labs showed potassium of 3.1 with white count improving. Objective PUL Vital signs: Last Vital Signs Temp 101.7 F H 07/27/18 07:38 Pulse 68 07/27/18 09:00 Resp 15 07/27/18 09:00 BP 96/58 07/27/18 09:00 Pulse Ox 99 07/27/18 09:00 General appearance: no acute distress, other (intubated and sedated) Eyes: nonicteric ENT: oropharynx moist Neck: supple, no lymphadenopathy Auscultation: bilateral: diminished breath sounds (lower lung bases) Cardiovascular: regular rate and rhythm Gastrointestinal: hypoactive bowel sounds, soft, non-tender Integumentary: normal Extremities: no cyanosis, no edema Musculoskeletal: no deformities unable to assess due to mental status (sedated and intuabted) Ventilator Settings Ventilator Settings: Ventilator Settings, Last 8 Hours Ventilator Tidal Volume 400 Setting Ventilator Tidal Volume 450 Setting Ventilator Tidal Volume 450 Setting Ventilator Tidal Volume 450 Setting Ventilator Tidal Volume 450 Setting Ventilator Tidal Volume 450 Setting Ventilator Tidal Volume 450 Setting Ventilator Tidal Volume 450 Setting Ventilator Tidal Volume 450 Setting Ventilator Tidal Volume 450 Setting Ventilator Tidal Volume 450 Setting Ventilator Tidal Volume 450 Setting Ventilator Respiratory Rate 12 Setting Ventilator Respiratory Rate 12 Setting Ventilator Respiratory Rate 12 Setting Ventilator Respiratory Rate 12 Setting Ventilator Respiratory Rate 12 Setting Ventilator Respiratory Rate 12 Setting Ventilator Respiratory Rate 12 Setting Ventilator Respiratory Rate 12 Setting Ventilator Respiratory Rate 12 Setting Ventilator Respiratory Rate 12 Setting Ventilator Respiratory Rate 12 Setting Ventilator Respiratory Rate 12 Setting Actual Respiratory Rate 15 Actual Respiratory Rate 14 Actual Respiratory Rate 15 Actual Respiratory Rate 14 Actual Respiratory Rate 15 Actual Respiratory Rate 15 Actual Respiratory Rate 18 Actual Respiratory Rate 16 Actual Respiratory Rate 18 Actual Respiratory Rate 18 Actual Respiratory Rate 17 Positive End Expiratory 5 Pressure Positive End Expiratory 5 Pressure Positive End Expiratory 5 Pressure Positive End Expiratory 5 Pressure Positive End Expiratory 5 Pressure Positive End Expiratory 5 Pressure Positive End Expiratory 5 Pressure Positive End Expiratory 5 Pressure Positive End Expiratory 5 Pressure Positive End Expiratory 5 Pressure Positive End Expiratory 5 Pressure Positive End Expiratory 5 Pressure Peak Inspiratory Airway 19 Pressure Peak Inspiratory Airway 20 Pressure Peak Inspiratory Airway 21 Pressure Peak Inspiratory Airway 20 Pressure Peak Inspiratory Airway 22 Pressure Peak Inspiratory Airway 22 Pressure Peak Inspiratory Airway 27 Pressure Peak Inspiratory Airway 23 Pressure Peak Inspiratory Airway 23 Pressure Peak Inspiratory Airway 23 Pressure Peak Inspiratory Airway 22 Pressure Results - Laboratory Findings CBC and BMP: 07/27/18 04:33 07/27/18 04:33 ABG ABG pH 7.47 pH Units (7.32-7.45) H 07/27/18 04:36 ABG pCO2 30 mmHg (35-45) L 07/27/18 04:36 ABG pO2 62 mmHg (85-104) L 07/27/18 04:36 ABG O2 Saturation 93 % (95-98) L 07/27/18 04:36 Abnormal lab findings: Abnormal lab results WBC 11.8 K/mcL (4.3-11.1) H 07/27/18 04:33 RBC 5.21 M/mcL (3.82-4.97) H 07/26/18 14:12 Hgb 15.5 g/dL (11.5-15.4) H 07/26/18 14:12 Hct 46.6 % (35.3-44.9) H 07/26/18 14:12 ABG pH 7.47 pH Units (7.32-7.45) H 07/27/18 04:36 ABG pCO2 30 mmHg (35-45) L 07/27/18 04:36 ABG pO2 62 mmHg (85-104) L 07/27/18 04:36 ABG O2 Saturation 93 % (95-98) L 07/27/18 04:36 Potassium 3.1 mEq/L (3.5-5.1) L 07/27/18 04:33 Chloride 108 mEq/L (98-107) H 07/27/18 04:33 Glucose 135 mg/dL (70-105) H 07/27/18 04:33 POC Glucose 122 mg/dL (70-99) H 07/26/18 12:42 Lactic Acid 2.6 mmol/L (0.5-2.2) H 07/26/18 18:11 Calcium 7.8 mg/dL (8.6-10.3) L 07/27/18 04:33 413 Units/L (30-223) H 07/27/18 04:33 5.7 g/dL (6.4-8.9) L 07/27/18 06:00 3.1 g/dL (3.5-5.7) L 07/26/18 21:30 2.2 g/dL (2.4-3.5) L 07/27/18 06:00 - Clinical Findings Intake & Output: Intake & Output 05/31/19 06/01/19 06/01/19 23:59 07:59 15:59 Intake Total 79 / 229 1244 / 1344 100 / 1344 Output Total 480 / 480 625 / 625 Balance -401 / -251 619 / 719 100 / 719 Weight 89.9 kg Consult Discharge Plan - Plan Referrals: NONE,PCP [Primary Care Provider] - <Florentin Saunders - Last Filed: 07/28/18 00:13> Date of Encounter: 07/28/18 Objective PUL Vital signs: Last Vital Signs Temp 101.2 F H 07/27/18 20:00 Pulse 70 07/27/18 23:05 Resp 15 07/27/18 23:18 BP 109/59 07/27/18 23:18 Pulse Ox 93 07/27/18 23:18 Ventilator Settings Ventilator Settings: Ventilator Settings, Last 8 Hours Ventilator Tidal Volume 400 Setting Ventilator Tidal Volume 400 Setting Ventilator Tidal Volume 400 Setting Ventilator Tidal Volume 400 Setting Ventilator Tidal Volume 400 Setting Ventilator Tidal Volume 400 Setting Ventilator Tidal Volume 400 Setting Ventilator Tidal Volume 400 Setting Ventilator Tidal Volume 400 Setting Ventilator Tidal Volume 400 Setting Ventilator Tidal Volume 400 Setting Ventilator Respiratory Rate 12 Setting Ventilator Respiratory Rate 12 Setting Ventilator Respiratory Rate 12 Setting Ventilator Respiratory Rate 12 Setting Ventilator Respiratory Rate 12 Setting Ventilator Respiratory Rate 12 Setting Ventilator Respiratory Rate 12 Setting Ventilator Respiratory Rate 12 Setting Ventilator Respiratory Rate 12 Setting Ventilator Respiratory Rate 12 Setting Ventilator Respiratory Rate 12 Setting Actual Respiratory Rate 15 Actual Respiratory Rate 23 Actual Respiratory Rate 14 Actual Respiratory Rate 13 Actual Respiratory Rate 16 Actual Respiratory Rate 16 Actual Respiratory Rate 16 Actual Respiratory Rate 16 Actual Respiratory Rate 18 Actual Respiratory Rate 13 Actual Respiratory Rate 14 Positive End Expiratory 5 Pressure Positive End Expiratory 5 Pressure Positive End Expiratory 5 Pressure Positive End Expiratory 5 Pressure Positive End Expiratory 5 Pressure Positive End Expiratory 5 Pressure Positive End Expiratory 5 Pressure Positive End Expiratory 5 Pressure Positive End Expiratory 5 Pressure Positive End Expiratory 5 Pressure Positive End Expiratory 5 Pressure Peak Inspiratory Airway 21 Pressure Peak Inspiratory Airway 19 Pressure Peak Inspiratory Airway 20 Pressure Peak Inspiratory Airway 20 Pressure Peak Inspiratory Airway 21 Pressure Peak Inspiratory Airway 25 Pressure Peak Inspiratory Airway 19 Pressure Peak Inspiratory Airway 19 Pressure Peak Inspiratory Airway 11 Pressure Peak Inspiratory Airway 19 Pressure Peak Inspiratory Airway 19 Pressure Results - Laboratory Findings CBC and BMP: 07/27/18 04:33 07/27/18 04:33 ABG ABG pH 7.47 pH Units (7.32-7.45) H 07/27/18 04:36 ABG pCO2 30 mmHg (35-45) L 07/27/18 04:36 ABG pO2 62 mmHg (85-104) L 07/27/18 04:36 ABG O2 Saturation 93 % (95-98) L 07/27/18 04:36 Abnormal lab findings: Abnormal lab results WBC 11.8 K/mcL (4.3-11.1) H 07/27/18 04:33 RBC 5.21 M/mcL (3.82-4.97) H 07/26/18 14:12 Hgb 15.5 g/dL (11.5-15.4) H 07/26/18 14:12 Hct 46.6 % (35.3-44.9) H 07/26/18 14:12 ABG pH 7.47 pH Units (7.32-7.45) H 07/27/18 04:36 ABG pCO2 30 mmHg (35-45) L 07/27/18 04:36 ABG pO2 62 mmHg (85-104) L 07/27/18 04:36 ABG O2 Saturation 93 % (95-98) L 07/27/18 04:36 Potassium 3.1 mEq/L (3.5-5.1) L 07/27/18 04:33 Chloride 108 mEq/L (98-107) H 07/27/18 04:33 Glucose 135 mg/dL (70-105) H 07/27/18 04:33 POC Glucose 122 mg/dL (70-99) H 07/26/18 12:42 Lactic Acid 2.6 mmol/L (0.5-2.2) H 07/26/18 18:11 Calcium 7.8 mg/dL (8.6-10.3) L 07/27/18 04:33 413 Units/L (30-223) H 07/27/18 04:33 0.20 ng/mL (< 0.04) H* 07/27/18 21:29 5.7 g/dL (6.4-8.9) L 07/27/18 06:00 3.1 g/dL (3.5-5.7) L 07/26/18 21:30 2.2 g/dL (2.4-3.5) L 07/27/18 06:00 - Microbiology Findings Microbiology Findings: Microbiology, Last 48 Hours 07/27/18 07:45 Sputum Culture - Preliminary Sputum 07/27/18 06:34 Blood Culture - Preliminary Peripheral Venipuncture Culture is incubating and being continuously monitored for growth. Final report to follow. 07/27/18 06:26 Blood Culture - Preliminary Peripheral Venipuncture Culture is incubating and being continuously monitored for growth. Final report to follow. - Clinical Findings Intake & Output: Intake & Output 07/27/18 07/27/18 07/28/18 15:59 23:59 07:59 Intake Total 1827 / 3371 300 / 3371 Output Total 600 / 2120 895 / 2120 Balance 1227 / 1251 -595 / 1251 - Attending Attestation I saw and evaluated this patient and my medical decision-making was reviewed with the Resident Physician. I agree with the documented findings, disposition and treatment plan as described except to the extent set forth below. We independently had [id number] contact with the patient I spent 45 minutes of Critical Care time with this patient. It involved decision making of high complexity to assess, manipulate, and support vital organ system failure and/or to prevent further life threatening deterioration of the patient's condition. The time involved in the performance of separately reportable procedures was not counted toward critical care time. Patient seen and examined at bedside Labs, radiology, chart personally reviewed. Management was reviewed during multidisciplinary critical care rounds. [employer] ATTENDANT: Patient is awake opening to verbal stimuli be calling her name but she is not following commands Pulm: Supple aspiration pneumonitis versus pneumonia patient with the high-grade fever will broaden the coverage of antibiotics patient V/Q mismatch is a cceptable. adjusted minute ventilation to aid low tidal volume strategy Cards: Is hemodynamically stable patient has evidence of sepsis no septic shock. FEN-GI: Advance diet as per nutrition. Renal: Labs reviewed ID: To send blood cultures and broaden the coverage of antibiotics because of high-grade fever Heme/Onc: Labs reviewed Endo: Glucose Monitored Integ/MSK: Skin Care per routine ICU Nursing Protocol to prevent ulcers. Lines: All lines examined without evidence of infection : Dispo: critically ill CODE: Full code
[2018-07-27] MEDS: Acetaminophen 325 MG TABLET PO PRN (16:54)
[2018-07-27] MEDS ORDERED: *HR* Dextrose 50 % in Water (Syg) 50 ML SYRINGE IVP PRN (23:13)
[2018-07-28] MEDS: FentaNYL (PF) 1,000 MCG in 0.9 % Sodium Chloride 80 ML IVC SCH ×2 (01:51→06:21)
[2018-07-28] MEDS: 0.9 % Sodium Chloride 1,000 ML IVC SCH ×2 (02:13→10:45)
[2018-07-28 03:29] LABS: Basophils # 0.1 K/mcL (0.0-0.2); Basophils % 0.4 %; Eosinophils # 0.1 K/mcL (0.0-0.6); Eosinophils % 0.8 %; Hematocrit 37.6 % (35.3-44.9); Hemoglobin 12.8 g/dL (11.5-15.4); Immature Granulocytes % 0.5 % (0-4); Lymphocytes # 2.4 K/mcL (0.6-4.6); Lymphocytes % 18.7 %; Mean Corpuscular Volume 88.1 fL (83.0-100.0); Mean Platelet Volume 9.9 fL (9.4-12.4); Monocytes # 1.5 K/mcL (0.0-1.3); Monocytes % 11.7 %; Neutrophils # 8.6 K/mcL (1.6-8.9); Platelet Count 194 K/mcL (140-400); Red Blood Count 4.27 M/mcL (3.82-4.97); Red Cell Distribution Width 12.8 % (11.5-14.5); Segmented Neutrophils % 67.9 %
[2018-07-28] MEDS: Artificial Tears SOLN 15 ML BOTTLE BOTH EYES SCH ×3 (03:31→10:49)
[2018-07-28] MEDS: Acetaminophen 325 MG TABLET PO PRN (03:37)
[2018-07-28 03:49] LABS: BUN/Creatinine Ratio 11 (6-26); Blood Urea Nitrogen 7 mg/dL (6-20); Calcium 8.3 mg/dL (8.6-10.3); Carbon Dioxide 26 mEq/L (23-29); Chloride 105 mEq/L (98-107); Glucose 108 mg/dL (70-105); Magnesium 1.7 mg/dL (1.6-2.6); Osmolality,Calculated 289 (280-300); Potassium 3.8 mEq/L (3.5-5.1); Sodium 140 mEq/L (136-145); eGFR For Non-African Americans > 60 (> 60)
[2018-07-28 04:30] LABS: ABG Base Excess 0 mEq/L (-2 to 3); ABG HCO3 24 mEq/L (21-27); ABG Oxygen Saturation 94 % (95-98); ABG PCO2 37 mmHg (35-45); ABG PH 7.43 pH Units (7.32-7.45); ABG PO2 69 mmHg (85-104); ABG TCO2 25 mEq/L (20-26); Blood Gas Modality VC+; Blood Gas PEEP 5 cm H2O; Blood Gas Respiration Rate 12; Blood Gas VT 400 cc
[2018-07-28] MEDS: *HR* Heparin 5,000 UNIT/ML VIAL SQ SCH (05:02)
[2018-07-28] MEDS: Piperacillin/Tazobactam 3.375 GM in 0.9 % Sodium Chloride Mini Bag 100 ML IVPB SCH (07:00)
[2018-07-28] MEDS: Pantoprazole 40 MG VIAL IVP SCH (07:01)
[2018-07-28] MEDS: Chlorhexidine Rinse 15 ML MOUTHWASH MM SCH (07:01)
[2018-07-28 09:49] LABS: Adenovirus Not Detected (Not Detect); Bordetella Pertussis Not Detected (Not Detect); Chlamydophila pneumoniae Not Detected (Not Detect); Coronavirus 229E Not Detected (Not Detect); Coronavirus HKU1 Not Detected (Not Detect); Coronavirus NL63 Not Detected (Not Detect); Coronavirus OC43 Not Detected (Not Detect); Human Metapneumovirus Not Detected (Not Detect); Human Rhinovirus/Enterovirus Not Detected (Not Detect); Influenza A Subtype 2009 H1 Not Detected (Not Detect); Influenza A Untypeable Not Detected (Not Detect); Influenza B Not Detected (Not Detect); Mycoplasma pneumoniae Not Detected (Not Detect); Parainfluenza Virus 1 Not Detected (Not Detect); Parainfluenza Virus 2 Not Detected (Not Detect); Parainfluenza Virus 3 Not Detected (Not Detect); Parainfluenza Virus 4 Not Detected (Not Detect); Respiratory Syncytial Virus Not Detected (Not Detect)
[2018-07-28] MEDS ORDERED: Cefepime HCl 2,000 MG in Water for inj. (sterile) 20 ML 20 ML IVP SCH (10:00)
[2018-07-28] MEDS ORDERED: Acyclovir 600 MG in D5% in Water 250 ML IVPB SCH (10:00)
--- NOTE | 2018-07-28 10:28 | Discharge Summary ---
<Dequan,Fern - Last Filed: 07/28/18 11:08> Orders not resulted at time of discharge: Pending orders 07/27/18 06:34 Culture,Blood [BC] Stat 07/27/18 07:45 Culture,Sputum with Gram Stain [RM] Routine 07/28/18 08:50 Procalcitonin Stat 07/28/18 09:16 CT abd pelvis wo no iv no oral [CT] Routine CT chest wo con [CT] Routine CT head/brain wo con [CT] Routine 07/29/18 13:30 Arterial Blood Gas DAILY 07/30/18 13:30 Arterial Blood Gas DAILY 07/31/18 13:30 Arterial Blood Gas DAILY 08/01/18 13:30 Arterial Blood Gas DAILY 08/02/18 13:30 Arterial Blood Gas DAILY 08/03/18 13:30 Arterial Blood Gas DAILY 08/04/18 13:30 Arterial Blood Gas DAILY Date of Encounter: 07/28/18 Time of Encounter: 09:00 - Discharge Diagnosis (1) Acute respiratory failure Priority: Primary Status: Acute Qualifiers: Respiratory failure complication: unspecified whether with hypoxia or hypercapnia Qualified Code(s): J96.00 - Acute respiratory failure, unspecified whether with hypoxia or hypercapnia (2) Brain hematoma Priority: Secondary Status: Acute (3) Overdose Priority: Secondary Status: Acute Qualifiers: Encounter type: initial encounter Injury intent: undetermined intent Qualified Code(s): T50.904A - Poisoning by unspecified drugs, medicaments and biological substances, undetermined, initial encounter (4) Bradycardia Priority: Secondary Status: Chronic (5) Hypokalemia Priority: Secondary Status: Acute (6) Elevated troponin Priority: Secondary Status: Acute (7) Persistent fever Priority: Secondary Status: Acute (8) DVT prophylaxis Priority: Secondary Status: Acute - Discharge Medications Prescriptions: No Action Tizanidine HCl 4 mg PO TID PRN PRN Reason: Muscle Spasm Zolpidem [Ambien] 10 mg PO HS PRN PRN Reason: Insomnia Fluticasone Propionate Nasal [Flonase] 1 spray NS BID Gabapentin 800 mg PO TID hydrOXYzine HCl [Hydroxyzine HCl] 25 mg PO TID PRN PRN Reason: Anxiety Montelukast [Singulair] 10 mg PO DAILY Quetiapine Fumarate [Seroquel] 300 mg PO HS Quetiapine Fumarate [Seroquel] 100 mg PO QAM Quetiapine Fumarate [Seroquel] 100 mg PO QPM Quetiapine Fumarate [Seroquel] 200 mg PO HS Home Medications: Tizanidine HCl 4 mg PO TID PRN 10/03/17 [History] Zolpidem [Ambien] 10 mg PO HS PRN 02/16/18 [History] Fluticasone Propionate Nasal [Flonase] 1 spray NS BID 07/28/18 [History] Gabapentin 800 mg PO TID 07/28/18 [History] Montelukast [Singulair] 10 mg PO DAILY 07/28/18 [History] Quetiapine Fumarate [Seroquel] 100 mg PO QAM 07/28/18 [History] Quetiapine Fumarate [Seroquel] 100 mg PO QPM 07/28/18 [History] Quetiapine Fumarate [Seroquel] 200 mg PO HS 07/28/18 [History] Quetiapine Fumarate [Seroquel] 300 mg PO HS 07/28/18 [History] hydrOXYzine HCl [Hydroxyzine HCl] 25 mg PO TID PRN 07/28/18 [History] Allergies/Adverse Reactions: Allergy/AdvReac Type Severity Reaction Status Date / Time No Known Allergies Allergy Verified 02/16/18 13:58 Procedures and tests throughout hospitalization: CT head, chest and abd Labs on day of discharge: Labs from last 24 hours 07/28/18 07/28/18 07/28/18 08:50 08:50 04:27 WBC RBC Hgb Hct MCV MCH MCHC RDW Plt Count MPV Immature Gran % Seg Neutrophils % Lymphocytes % Monocytes % Eosinophils % Basophils % Neutrophils # Lymphocytes # Monocytes # Eosinophils # Basophils # Sample Site R Radial ABG pH 7.43 ABG pCO2 37 ABG pO2 69 L ABG HCO3 24 ABG Total CO2 25 ABG O2 Saturation 94 L ABG Base Excess 0 Lei Test Positive Respiration Rate 12 O2 Delivery Device Adult Vent Blood Gas Modality VC+ Inspired O2 30.0 Tidal Volume 400 PEEP 5 Sodium Potassium Chloride Carbon Dioxide BUN Creatinine Est GFR ( Amer) Est GFR (Non-Af Amer) BUN/Creatinine Ratio Glucose POC Glucose Calculated Osmolality Calcium Magnesium Creatine Kinase 369 H Troponin I Procalcitonin Nasal Screen MRSA (PCR) Chlamy pneumoniae PCR Not Detected Adenovirus (PCR) Not Detected B. pertussis DNA (PCR) Not Detected B.parapertussis DNA PCR Not Detected Coronavirus OC43 (PCR) Not Detected Coronavirus HKU1 (PCR) Not Detected Coronavirus 229E (PCR) Not Detected Coronavirus NL63 (PCR) Not Detected Human Metapneumovir PCR Not Detected Influenza A (H1) PCR Not Detected Influ A (H1N1/) PCR Not Detected Influenza A (H3) PCR Not Detected Influenza A Untype (PCR) Not Detected Influenza Type B (PCR) Not Detected M.pneumoniae DNA (PCR) Not Detected Parainfluenza 1 (PCR) Not Detected Parainfluenza 2 (PCR) Not Detected Parainfluenza 3 (PCR) Not Detected Parainfluenza 4 (PCR) Not Detected RSV (PCR) Not Detected Entero/Rhino (PCR) Not Detected 07/28/18 07/28/18 07/28/18 03:20 03:20 01:10 WBC 12.7 H RBC 4.27 Hgb 12.8 Hct 37.6 MCV 88.1 MCH 30.0 MCHC 34.0 RDW 12.8 Plt Count 194 MPV 9.9 Immature Gran % 0.5 Seg Neutrophils % 67.9 Lymphocytes % 18.7 Monocytes % 11.7 Eosinophils % 0.8 Basophils % 0.4 Neutrophils # 8.6 Lymphocytes # 2.4 Monocytes # 1.5 H Eosinophils # 0.1 Basophils # 0.1 Sample Site ABG pH ABG pCO2 ABG pO2 ABG HCO3 ABG Total CO2 ABG O2 Saturation ABG Base Excess Lei Test Respiration Rate O2 Delivery Device Blood Gas Modality Inspired O2 Tidal Volume PEEP Sodium 140 Potassium 3.8 Chloride 105 Carbon Dioxide 26 BUN 7 Creatinine 0.64 Est GFR ( Amer) > 60 Est GFR (Non-Af Amer) > 60 BUN/Creatinine Ratio 11 Glucose 108 H POC Glucose Calculated Osmolality 289 Calcium 8.3 L Magnesium 1.7 Creatine Kinase Troponin I Procalcitonin 0.10 Nasal Screen MRSA (PCR) Chlamy pneumoniae PCR Adenovirus (PCR) B. pertussis DNA (PCR) B.parapertussis DNA PCR Coronavirus OC43 (PCR) Coronavirus HKU1 (PCR) Coronavirus 229E (PCR) Coronavirus NL63 (PCR) Human Metapneumovir PCR Influenza A (H1) PCR Influ A (H1N1/09) PCR Influenza A (H3) PCR Influenza A Untype (PCR) Influenza Type B (PCR) M.pneumoniae DNA (PCR) Parainfluenza 1 (PCR) Parainfluenza 2 (PCR) Parainfluenza 3 (PCR) Parainfluenza 4 (PCR) RSV (PCR) Entero/Rhino (PCR) 07/27/18 07/27/18 07/27/18 23:02 21:29 15:29 WBC RBC Hgb Hct MCV MCH MCHC RDW Plt Count MPV Immature Gran % Seg Neutrophils % Lymphocytes % Monocytes % Eosinophils % Basophils % Neutrophils # Lymphocytes # Monocytes # Eosinophils # Basophils # Sample Site ABG pH ABG pCO2 ABG pO2 ABG HCO3 ABG Total CO2 ABG O2 Saturation ABG Base Excess Lei Test Respiration Rate O2 Delivery Device Blood Gas Modality Inspired O2 Tidal Volume PEEP Sodium Potassium Chloride Carbon Dioxide BUN Creatinine Est GFR ( Amer) Est GFR (Non-Af Amer) BUN/Creatinine Ratio Glucose POC Glucose 65 L Calculated Osmolality Calcium Magnesium Creatine Kinase Troponin I 0.20 H* 0.28 H* Procalcitonin Nasal Screen MRSA (PCR) Chlamy pneumoniae PCR Adenovirus (PCR) B. pertussis DNA (PCR) B.parapertussis DNA PCR Coronavirus OC43 (PCR) Coronavirus HKU1 (PCR) Coronavirus 229E (PCR) Coronavirus NL63 (PCR) Human Metapneumovir PCR Influenza A (H1) PCR Influ A (H1N1/09) PCR Influenza A (H3) PCR Influenza A Untype (PCR) Influenza Type B (PCR) M.pneumoniae DNA (PCR) Parainfluenza 1 (PCR) Parainfluenza 2 (PCR) Parainfluenza 3 (PCR) Parainfluenza 4 (PCR) RSV (PCR) Entero/Rhino (PCR) 07/27/18 07/27/18 07/27/18 11:29 07:45 06:26 WBC RBC Hgb Hct MCV MCH MCHC RDW Plt Count MPV Immature Gran % Seg Neutrophils % Lymphocytes % Monocytes % Eosinophils % Basophils % Neutrophils # Lymphocytes # Monocytes # Eosinophils # Basophils # Sample Site ABG pH ABG pCO2 ABG pO2 ABG HCO3 ABG Total CO2 ABG O2 Saturation ABG Base Excess Lei Test Respiration Rate O2 Delivery Device Blood Gas Modality Inspired O2 Tidal Volume PEEP Sodium Potassium Chloride Carbon Dioxide BUN Creatinine Est GFR ( Amer) Est GFR (Non-Af Amer) BUN/Creatinine Ratio Glucose POC Glucose 79 Calculated Osmolality Calcium Magnesium Creatine Kinase Troponin I 0.31 H* Procalcitonin Nasal Screen MRSA (PCR) Negative Chlamy pneumoniae PCR Adenovirus (PCR) B. pertussis DNA (PCR) B.parapertussis DNA PCR Coronavirus OC43 (PCR) Coronavirus HKU1 (PCR) Coronavirus 229E (PCR) Coronavirus NL63 (PCR) Human Metapneumovir PCR Influenza A (H1) PCR Influ A (H1N1/09) PCR Influenza A (H3) PCR Influenza A Untype (PCR) Influenza Type B (PCR) M.pneumoniae DNA (PCR) Parainfluenza 1 (PCR) Parainfluenza 2 (PCR) Parainfluenza 3 (PCR) Parainfluenza 4 (PCR) RSV (PCR) Entero/Rhino (PCR) Preliminary micro results at discharge 07/27/18 07:45 Sputum Culture - Preliminary Sputum 07/27/18 06:34 Blood Culture - Preliminary Peripheral Venipuncture Culture is incubating and being continuously monitored for growth. Final report to follow. 07/27/18 06:26 Blood Culture - Preliminary Peripheral Venipuncture Culture is incubating and being continuously monitored for growth. Final report to follow. - Impressions ITS Impressions Chest X-Ray 07/26/18 13:27 IMPRESSION: It appears that the NG tube has been further advanced since the previous exam. Otherwise stable appearance of the chest. D/ / Rey Mcclellan MD / Rey Mcclellan MD Interpreting Provider: Rey Mcclellan MD X-Ray 07/26/18 13:28 IMPRESSION: The enteric tube has its tip in the region of the second portion of the duodenum. No acute process identified. D/ / 07/26/2018 13:56:34 Fer De Anda MD / Shellie Quesada Interpreting Provider: Fer De Anda MD Date of admission: 07/26/18 13:36 Primary care physician: PCP NONE Consults: 07/27/18 09:30 Consult to Auto Bumper Straightener [CONS] Routine Reason for SW Consult: Needs social assistance 07/28/18 10:05 Consult to Neurology [CONS] Routine Consulting Provider: [facility] Reason for Consult: Persistent fever, headache at admission Call Completed: Yes - Patient Status Disposition: Transfer Short-Term Hosp Condition: Critical Functional capacity at discharge: bed bound - Discharge Instructions Follow Up With: NONE,PCP [Primary Care Provider] - - Hospital Course Hospital course: Ms. De Leon is a 48 year old female who was transferred to [facility] from [facility] she was found at home unresponsive. Her UDS was positive for TCA, benzo, opioids. At [facility] she had QT prolongation and repeat EKG showed QT prolongation. She also had episode of bradycardia with junctional rhythm and received atropine at outside facility. She had a CT of the head at presentation to [facility] which did not report any acute abnormalities. At presentation her white count was elevated and she was started on antibiotics for concern of aspiration pneumonia. On 07/27/18 she developed ongoing fever not responding to acetaminophen. 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 CT of the head was repeated today on 07/28/18 and shows left occipital hematoma; hemorrhagic mass versus hemorrhagic infarct. Neurology was consulted and they recommended urgent transfer to neurosurgery center. Spoke with [facility] subsequently and will be transferred. - Time Spent with Patient Total time spent providing and/or coordinating discharge services: Physical Examination Vital Signs: Vital Signs, Last 4 Hours Temp Pulse Resp BP Pulse Ox 07/28/18 09:00 87 17 154/86 95 07/28/18 08:39 100.9 F H 07/28/18 08:00 86 16 99/50 95 07/28/18 07:46 13 96/39 94 07/28/18 07:00 108 15 102/35 95 General appearance: no acute distress, other (Sedated and intubated) Eyes: nonicteric ENT: oropharynx moist Neck: supple Auscultation: bilateral: diminished breath sounds Cardiovascular: regular rate and rhythm Gastrointestinal: normoactive bowel sounds, soft, non-distended Extremities: no cyanosis, no edema unable to assess due to mental status (intubated and sedated) <Florentin Saunders - Last Filed: 07/28/18 20:21> Orders not resulted at time of discharge: Pending orders 07/27/18 06:34 Culture,Blood [BC] Stat 07/27/18 07:45 Culture,Sputum with Gram Stain [RM] Routine Date of Encounter: 07/28/18 Labs on day of discharge: Labs from last 24 hours 07/28/18 07/28/18 07/28/18 08:50 08:50 08:50 WBC RBC Hgb Hct MCV MCH MCHC RDW Plt Count MPV Immature Gran % Seg Neutrophils % Lymphocytes % Monocytes % Eosinophils % Basophils % Neutrophils # Lymphocytes # Monocytes # Eosinophils # Basophils # Sample Site ABG pH ABG pCO2 ABG pO2 ABG HCO3 ABG Total CO2 ABG O2 Saturation ABG Base Excess Lei Test Respiration Rate O2 Delivery Device Blood Gas Modality Inspired O2 Tidal Volume PEEP Sodium Potassium Chloride Carbon Dioxide BUN Creatinine Est GFR ( Amer) Est GFR (Non-Af Amer) BUN/Creatinine Ratio Glucose POC Glucose Calculated Osmolality Calcium Magnesium Creatine Kinase 369 H Troponin I Procalcitonin 0.11 Chlamy pneumoniae PCR Not Detected Adenovirus (PCR) Not Detected B. pertussis DNA (PCR) Not Detected B.parapertussis DNA PCR Not Detected Coronavirus OC43 (PCR) Not Detected Coronavirus HKU1 (PCR) Not Detected Coronavirus 229E (PCR) Not Detected Coronavirus NL63 (PCR) Not Detected Human Metapneumovir PCR Not Detected Influenza A (H1) PCR Not Detected Influ A (H1N1/09) PCR Not Detected Influenza A (H3) PCR Not Detected Influenza A Untype (PCR) Not Detected Influenza Type B (PCR) Not Detected M.pneumoniae DNA (PCR) Not Detected Parainfluenza 1 (PCR) Not Detected Parainfluenza 2 (PCR) Not Detected Parainfluenza 3 (PCR) Not Detected Parainfluenza 4 (PCR) Not Detected RSV (PCR) Not Detected Entero/Rhino (PCR) Not Detected 07/28/18 07/28/18 07/28/18 04:27 03:20 03:20 WBC 12.7 H RBC 4.27 Hgb 12.8 Hct 37.6 MCV 88.1 MCH 30.0 MCHC 34.0 RDW 12.8 Plt Count 194 MPV 9.9 Immature Gran % 0.5 Seg Neutrophils % 67.9 Lymphocytes % 18.7 Monocytes % 11.7 Eosinophils % 0.8 Basophils % 0.4 Neutrophils # 8.6 Lymphocytes # 2.4 Monocytes # 1.5 H Eosinophils # 0.1 Basophils # 0.1 Sample Site R Radial ABG pH 7.43 ABG pCO2 37 ABG pO2 69 L ABG HCO3 24 ABG Total CO2 25 ABG O2 Saturation 94 L ABG Base Excess 0 Lei Test Positive Respiration Rate 12 O2 Delivery Device Adult Vent Blood Gas Modality VC+ Inspired O2 30.0 Tidal Volume 400 PEEP 5 Sodium 140 Potassium 3.8 Chloride 105 Carbon Dioxide 26 BUN 7 Creatinine 0.64 Est GFR ( Amer) > 60 Est GFR (Non-Af Amer) > 60 BUN/Creatinine Ratio 11 Glucose 108 H POC Glucose Calculated Osmolality 289 Calcium 8.3 L Magnesium 1.7 Creatine Kinase Troponin I Procalcitonin Chlamy pneumoniae PCR Adenovirus (PCR) B. pertussis DNA (PCR) B.parapertussis DNA PCR Coronavirus OC43 (PCR) Coronavirus HKU1 (PCR) Coronavirus 229E (PCR) Coronavirus NL63 (PCR) Human Metapneumovir PCR Influenza A (H1) PCR Influ A (H1N1/09) PCR Influenza A (H3) PCR Influenza A Untype (PCR) Influenza Type B (PCR) M.pneumoniae DNA (PCR) Parainfluenza 1 (PCR) Parainfluenza 2 (PCR) Parainfluenza 3 (PCR) Parainfluenza 4 (PCR) RSV (PCR) Entero/Rhino (PCR) 07/28/18 07/27/18 07/27/18 01:10 23:02 21:29 WBC RBC Hgb Hct MCV MCH MCHC RDW Plt Count MPV Immature Gran % Seg Neutrophils % Lymphocytes % Monocytes % Eosinophils % Basophils % Neutrophils # Lymphocytes # Monocytes # Eosinophils # Basophils # Sample Site ABG pH ABG pCO2 ABG pO2 ABG HCO3 ABG Total CO2 ABG O2 Saturation ABG Base Excess Lei Test Respiration Rate O2 Delivery Device Blood Gas Modality Inspired O2 Tidal Volume PEEP Sodium Potassium Chloride Carbon Dioxide BUN Creatinine Est GFR ( Amer) Est GFR (Non-Af Amer) BUN/Creatinine Ratio Glucose POC Glucose 65 L Calculated Osmolality Calcium Magnesium Creatine Kinase Troponin I 0.20 H* Procalcitonin 0.10 Chlamy pneumoniae PCR Adenovirus (PCR) B. pertussis DNA (PCR) B.parapertussis DNA PCR Coronavirus OC43 (PCR) Coronavirus HKU1 (PCR) Coronavirus 229E (PCR) Coronavirus NL63 (PCR) Human Metapneumovir PCR Influenza A (H1) PCR Influ A (H1N1/09) PCR Influenza A (H3) PCR Influenza A Untype (PCR) Influenza Type B (PCR) M.pneumoniae DNA (PCR) Parainfluenza 1 (PCR) Parainfluenza 2 (PCR) Parainfluenza 3 (PCR) Parainfluenza 4 (PCR) RSV (PCR) Entero/Rhino (PCR) 07/27/18 11:29 WBC RBC Hgb Hct MCV MCH MCHC RDW Plt Count MPV Immature Gran % Seg Neutrophils % Lymphocytes % Monocytes % Eosinophils % Basophils % Neutrophils # Lymphocytes # Monocytes # Eosinophils # Basophils # Sample Site ABG pH ABG pCO2 ABG pO2 ABG HCO3 ABG Total CO2 ABG O2 Saturation ABG Base Excess Lei Test Respiration Rate O2 Delivery Device Blood Gas Modality Inspired O2 Tidal Volume PEEP Sodium Potassium Chloride Carbon Dioxide BUN Creatinine Est GFR ( Amer) Est GFR (Non-Af Amer) BUN/Creatinine Ratio Glucose POC Glucose 79 Calculated Osmolality Calcium Magnesium Creatine Kinase Troponin I Procalcitonin Chlamy pneumoniae PCR Adenovirus (PCR) B. pertussis DNA (PCR) B.parapertussis DNA PCR Coronavirus OC43 (PCR) Coronavirus HKU1 (PCR) Coronavirus 229E (PCR) Coronavirus NL63 (PCR) Human Metapneumovir PCR Influenza A (H1) PCR Influ A (H1N1/09) PCR Influenza A (H3) PCR Influenza A Untype (PCR) Influenza Type B (PCR) M.pneumoniae DNA (PCR) Parainfluenza 1 (PCR) Parainfluenza 2 (PCR) Parainfluenza 3 (PCR) Parainfluenza 4 (PCR) RSV (PCR) Entero/Rhino (PCR) Preliminary micro results at discharge 07/27/18 07:45 Sputum Culture - Preliminary Sputum Gram Positive Cocci 07/27/18 06:34 Blood Culture - Preliminary Peripheral Venipuncture Culture is incubating and being continuously monitored for growth. Final report to follow. 07/27/18 06:26 Blood Culture - Preliminary Peripheral Venipuncture Culture is incubating and being continuously monitored for growth. Final report to follow. - Impressions ITS Impressions Chest X-Ray 07/26/18 13:27 IMPRESSION: It appears that the NG tube has been further advanced since the previous exam. Otherwise stable appearance of the chest. D/ / Rey Mcclellan MD / Rey Mcclellan MD Interpreting Provider: Rye Mcclellan MD X-Ray 07/26/18 13:28 IMPRESSION: The enteric tube has its tip in the region of the second portion of the duodenum. No acute process identified. D/ / 07/26/2018 13:56:34 Fer De Anda MD / Shellie Quesada Interpreting Provider: Fer De Anda MD Abdomen/Pelvis CT 07/28/18 09:16 IMPRESSION: CT CHEST 1. Small bilateral pleural effusions, right greater than left, with compressive basilar atelectasis and prominent vascularity. 2. Shotty mediastinal lymph nodes. CT ABDOMEN AND PELVIS: 1. Hepatomegaly with heterogeneous appearing liver, evaluation limited due to noncontrast nature of the study. Findings may be related to geographic fatty infiltration of the liver or appendicitis. Other liver nodular lesions are not excluded on this noncontrast study. 2. Colonic diverticulosis without diverticulitis. A 2.3 cm left ovarian cyst. Other findings as above. RECOMMENDATIONS: No further ultrasound follow-up is required for left ovarian cyst. Consideration may be given to ultrasound of the liver or postcontrast CT scanning of the liver. D/ / 07/28/2018 11:39:30 Sulema Severino MD / earelier Interpreting Provider: Sulema Severino MD Chest CT 07/28/18 09:16 IMPRESSION: CT CHEST 1. Small bilateral pleural effusions, right greater than left, with compressive basilar atelectasis and prominent vascularity. 2. Shotty mediastinal lymph nodes. CT ABDOMEN AND PELVIS: 1. Hepatomegaly with heterogeneous appearing liver, evaluation limited due to noncontrast nature of the study. Findings may be related to geographic fatty infiltration of the liver or appendicitis. Other liver nodular lesions are not excluded on this noncontrast study. 2. Colonic diverticulosis without diverticulitis. A 2.3 cm left ovarian cyst. Other findings as above. RECOMMENDATIONS: No further ultrasound follow-up is required for left ovarian cyst. Consideration may be given to ultrasound of the liver or postcontrast CT scanning of the liver. D/ / 07/28/2018 11:39:30 Sulema Severino MD / earnold Interpreting Provider: Sulema Severino MD Head CT 07/28/18 09:16 IMPRESSION: 3 cm left occipital hematoma. The differential includes hemorrhagic mass and hemorrhagic infarct. Follow-up MRI/MRA of the brain recommended for further evaluation Findings were discussed with Fern Baires at 10:39 am on 07/28/2018. D/ / Negro Damian MD / Negro Damian MD Interpreting Provider: Negro Damian MD Date of admission: 07/26/18 13:36 Primary care physician: PCP NONE Consults: 07/27/18 09:30 Consult to Auto Bumper Straightener [CONS] Routine Reason for SW Consult: Needs social assistance 07/28/18 10:05 Consult to Neurology [CONS] Routine Consulting Provider: Neu[facility] Reason for Consult: Persistent fever, headache at admission Call Completed: Yes - Hospital Course Hospital course: Ms. 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 Agree with the other documentation documented by the resident physician. - Time Spent with Patient Total time spent providing and/or coordinating discharge services:
[2018-07-28 12:04] VITALS: BP 122/58
--- NOTE | 2018-07-28 14:53 | Neurology - Consult Note ---
Date of Encounter: 07/28/18 Time of Encounter: 10:55 Assessment and Plan (1) Brain hematoma Status: Acute Patient with PMH significant for chronic back pain who was found unresponsive at home with reported headaches prior to admission. Initial CT of head showed no acute intracranial abnormality yesterday but repeat CT of head showed acute cerebral hemorrhage at the left occipito-parietal lobe. No prior history of HTN. Cause unclear and could be related trauma, amyloid angiopathy and underlying vascular malformation, less likely hypertensive. Patient certainly needs neurosurgical evaluation at [facility] where neurosurgery service is available. Patient is currently hemodynamically stable and discussed with the medical team and the medical members (sister) to proceed with transfer with recommendations from accepting medical facility. History of Present Illness Chief complaint: headache and unresponsiveness HPI: Ms. De Leon is a 48 year old female with PMH significant forchronic back pain s/p left hip replacement, who was transferred from [facility] due to being found unresponsive. Patient was transferred intubated due to prolonged unresponsiveness and initial CT of head performed at [facility] was reported no acute intracranial abnormality. Per her sister, patient was having headaches yesterday prior to being evaluated at [facility] and she also developed a fever later during the day. Upon arrival the patient has remained unresponsive and she was having slight nuchal rigidity and due to the fact that she has had headaches, neurology was consulted for possible [employer] infection and the patient was started on broad spectrum antibiotics and antiviral therapy and a repeat CT of head was obtained and surprisingly CT of head showed acute lobar hematoma at the left occipito-parietal lobe with surrounding edema. no midline shift noted. Past Med Surg Social Fam HX - Past Medical History Medical history: GERD, kidney stones, seizures, syncope Psychiatric history: anxiety, bipolar, depression - Past Surgical History Surgical History: , cholecystectomy Additional surgical history: Ortho ankel, wrist and finger sx - Social History Smoking Status: Never smoker Smokeless Tobacco Status: No Alcohol use: none Drug use: none - Family History Father Living Status: Still Living Hx Family Respiratory Disorders: Yes Hx Family Cancer: Yes Medications and Allergies Tizanidine HCl 4 mg PO TID PRN 10/03/17 [History] Zolpidem [Ambien] 10 mg PO HS PRN 02/16/18 [History] Fluticasone Propionate Nasal [Flonase] 1 spray NS BID 07/28/18 [History] Gabapentin 800 mg PO TID 07/28/18 [History] Montelukast [Singulair] 10 mg PO DAILY 07/28/18 [History] Quetiapine Fumarate [Seroquel] 100 mg PO QAM 07/28/18 [History] Quetiapine Fumarate [Seroquel] 100 mg PO QPM 07/28/18 [History] Quetiapine Fumarate [Seroquel] 200 mg PO HS 07/28/18 [History] Quetiapine Fumarate [Seroquel] 300 mg PO HS 07/28/18 [History] hydrOXYzine HCl [Hydroxyzine HCl] 25 mg PO TID PRN 07/28/18 [History] Allergy/AdvReac Type Severity Reaction Status Date / Time No Known Allergies Allergy Verified 02/16/18 13:58 All Systems: The remainder of the systems were reviewed and are negative - Constitutional Constitutional ROS IM: headache(s) (Yes), malaise (Yes) - Nose, Mouth, Throat Nose, mouth and throat: abnormal hearing (No), dizziness (Yes), dysphagia (No), headache(s) (Yes) - Cardiovascular Cardiovascular ROS IM: chest pain (No), claudication (No), diaphoresis (No) - Respiratory Respiratory IM: cough (No), dyspnea (No), hemoptysis (NO) - Gastrointestinal Gastrointestinal: abdominal pain (No) - Genitourinary Genitourinary ROS: difficulty urinating (No), difficulty voiding (No) - Musculoskeletal Musculoskeletal ROS IM: abnormal gait (NO), back pain (Yes) - Neurological Neurological ROS: headache(s) (Yes) - Psychiatric Psychiatric general PM: abnormal sleep pattern (No), auditory hallucinations (No) - Endocrine Endocrine IM: change in body appearance (NO) Physical Examination - Vital Signs Vital Signs: Initial Vital Signs Resp Pulse Ox 14 99 07/26/18 12:40 07/26/18 12:40 - Constitutional General appearance: other (Unable to assess due to sedation) - Neurologic Sensorimotor examination: other (Unaboe to assess due ot sedation) Detailed motor examination: other (Unable to assess due to sedation) Detailed sensory examination: other (Unaboe to assess due to sedation) Posture: other (NOne) Reflex and gait examination: other (None) Reflexes: Biceps: 1+, Triceps: 1+, Brachioradialis: 1+, Patella: 1+, Achilles: 1+ Mental Status Examination: coma Cranial nerve examination: PERRL, EOMI (Unable to assess), visual shahid intact (Unable to assess), corneal reflexes brisk symmetrically, sensory to face intact (Unable to assess), mastication intact (Unable to assess), no facial asymmetry is present, no dysarthria (Unable to assess), hearing is intact symmetrically (U nable to assess) Results - Laboratory Findings CBC and BMP: 07/28/18 03:20 07/28/18 03:20 Abnormal lab findings: Abnormal lab results WBC 12.7 K/mcL (4.3-11.1) H 07/28/18 03:20 RBC 5.21 M/mcL (3.82-4.97) H 07/26/18 14:12 Hgb 15.5 g/dL (11.5-15.4) H 07/26/18 14:12 Hct 46.6 % (35.3-44.9) H 07/26/18 14:12 1.5 K/mcL (0.0-1.3) H 07/28/18 03:20 ABG pH 7.47 pH Units (7.32-7.45) H 07/27/18 04:36 ABG pCO2 30 mmHg (35-45) L 07/27/18 04:36 ABG pO2 69 mmHg (85-104) L 07/28/18 04:27 ABG O2 Saturation 94 % (95-98) L 07/28/18 04:27 Potassium 3.1 mEq/L (3.5-5.1) L 07/27/18 04:33 Chloride 108 mEq/L (98-107) H 07/27/18 04:33 Glucose 108 mg/dL (70-105) H 07/28/18 03:20 POC Glucose 65 mg/dL (70-99) L 07/27/18 23:02 Lactic Acid 2.6 mmol/L (0.5-2.2) H 07/26/18 18:11 Calcium 8.3 mg/dL (8.6-10.3) L 07/28/18 03:20 369 Units/L (30-223) H 07/28/18 08:50 0.20 ng/mL (< 0.04) H* 07/27/18 21:29 5.7 g/dL (6.4-8.9) L 07/27/18 06:00 3.1 g/dL (3.5-5.7) L 07/26/18 21:30 2.2 g/dL (2.4-3.5) L 07/27/18 06:00 - Diagnostic Findings Additional findings: EXAMINATION: CT OF THE HEAD WITHOUT CONTRAST 07/28/2018 10:27 am TECHNIQUE: CT of the head was performed without the administration of intravenous contrast. Dose modulation, iterative reconstruction, and/or weight based adjustment of the mA/kV was utilized to reduce the radiation dose to as low as reasonably achievable. COMPARISON: None. HISTORY: ORDERING SYSTEM PROVIDED HISTORY: persistent fever, headache at presenation FINDINGS: BRAIN/VENTRICLES: There is a 2.9 by 1.8 cm intraparenchymal hematoma within the left occipital lobe. There is moderate surrounding edema. The remainder the brain is unremarkable. There is no significant mass-effect or hydrocephalus. ORBITS: The visualized portion of the orbits demonstrate no acute abnormality. SINUSES: The visualized paranasal sinuses and mastoid air cells demonstrate no acute abnormality. SOFT TISSUES/SKULL: No acute abnormality of the visualized skull or soft tissues. CT/CT head/brain wo con IMPRESSION: 3 cm left occipital hematoma. The differential includes hemorrhagic mass and hemorrhagic infarct. Follow-up MRI/MRA of the brain recommended for further evaluation Findings were discussed with Fern Baires at 10:39 am on 07/28/2018. D/ / Negro Damian MD / Negro Damian MD Interpreting Provider: Negro Damian MD /CT chest wo con IMPRESSION: CT CHEST 1. Small bilateral pleural effusions, right greater than left, with compressive basilar atelectasis and prominent vascularity. 2. Shotty mediastinal lymph nodes. CT ABDOMEN AND PELVIS: 1. Hepatomegaly with heterogeneous appearing liver, evaluation limited due to noncontrast nature of the study. Findings may be related to geographic fatty infiltration of the liver or appendicitis. Other liver nodular lesions are not excluded on this noncontrast study. 2. Colonic diverticulosis without diverticulitis. A 2.3 cm left ovarian cyst. Other findings as above. RECOMMENDATIONS: No further ultrasound follow-up is required for left ovarian cyst. Consult Discharge Plan - Plan Referrals: NONE,PCP [Primary Care Provider] -
--- NOTE | 2018-07-29 08:39 | Electrocardiograph Report ---
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
--- NOTE | 2018-07-29 08:48 | Electrocardiograph Report ---
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
== END 2018-07-28 12:35 | disposition short-term general hospital (02) | DRG 812 ==
LOC: ICNU 13:36
PROVIDERS: ADMIT Internal Medicine Pulmonary Disease; ATTEND Internal Medicine Pulmonary Disease